=== PATIENT | male | born 1955 | race Caucasian/White ===

== ENCOUNTER → 2018-07-26 | Outpatient (CLI) | payer OTHER ==
--- NOTE | 2018-07-26 10:45 | XR ---
EXAMINATION TYPE: XR chest 2V DATE OF EXAM: 07/26/2018 COMPARISON: 09/02/2015 HISTORY: 61-year-old male hypertension and shortness of breath TECHNIQUE: Frontal and lateral views FINDINGS: Heart upper limits of normal in size. Aorta and pulmonary vasculature within normal limits. Strandy a telectasis in the lower lungs. Otherwise, no consolidation or pleural effusion. IMPRESSION: Strandy bibasilar atelectasis. Otherwise, no acute process seen.
== END ==
LOC: RADXRYALE 09:48
PROVIDERS: ATTEND Physician Assistant Medical
DX: J98.11 Atelectasis (principal)
CPT/HCPCS: 71046

== ENCOUNTER → 2018-08-22 | Outpatient (CLI) | payer MEDICARE ==
--- NOTE | 2018-08-22 11:07 | P.ARTDOP ---
Arterial Doppler LOWER EXTREMITY ARTERIAL DOPPLER: DATE OF SERVICE: 08/22/2018 Reason for study: Painful toes. Doppler waveforms: Multiphasic bilaterally throughout. Pulse volume recording: Fairly normal waveforms in the digits. Pressure gradients: None. Ankle-brachial indices: Greater than 1 bilaterally. Toe pressures: 108 on the right, 120 on the left Impression: Normal resting test. Does not totally rule out Raynaud's. Treatment would be the same with keeping the feet warm and dry. Calcium channel blockers can be considered in extreme cases..
== END | disposition home or self-care (01) ==
LOC: RADUSWWP 08:10
PROVIDERS: ATTEND Family Medicine
DX: R09.89 Other specified symptoms and signs involving the circulatory and respiratory systems (principal); R20.8 Other disturbances of skin sensation
CPT/HCPCS: 93922

== ENCOUNTER → 2023-09-05 | Outpatient (CLI) | payer MEDICARE ==
--- NOTE | 2023-09-05 14:33 | US ---
EXAMINATION TYPE: US arterial LE single level DATE OF EXAM: 09/05/2023 2:01 PM CLINICAL INDICATION: Male, 67 years old with history of I73.9 PERIPHERAL VASCULAR DISEASE; Painful pu rple toes History of: Smoker: No Hypertension: Yes Diabetic: No Hyperlipidemia: No TIA/CVA: No Previous Vascular Surgery: No CAD: No IL: No Vascular Ulcers: No Claudication: No Gangrene: No Doppler Waveforms: Right: Biphasic Left: Biphasic Pulse Volume Recording: NA Pressure Gradients: NA Right Brachial Pressure: 129 Left Brachial Pressure: 139 Ankle-Brachial Indices: Right: 1.07 Left: 1.11 Toe Brachial Indices: Right: 0.35 Left: 0.37 IMPRESSION: 1. Ankle brachial indices within normal limits. 2. Toe brachial indices suggestive of severe disease.
== END | disposition home or self-care (01) ==
LOC: RADUSWWP 13:01
PROVIDERS: ATTEND Family Medicine
DX: I73.9 Peripheral vascular disease, unspecified (principal); M79.676 Pain in unspecified toe(s)
CPT/HCPCS: 93922

== ENCOUNTER → 2024-01-24 | Outpatient (CLI) | payer MEDICARE ==
--- NOTE | 2024-01-24 16:27 | XR ---
EXAMINATION TYPE: XR lumbosacral spine 5V DATE OF EXAM: 01/24/2024 Comparison: None Clinical History: 68-year-old male [id number] LBP, IDD Findings: Hypertrophic facet arthropathy is present throughout. Degenerative grade 1 retrolisthesis L1-L2 and g rade 1 anterolisthesis L2-L3 and L4-L5. Levoconvex scoliosis. Mild to moderate degenerative disc dise ase throughout. Vertebral body heights are preserved. Impression: Degenerative levoconvex curvature. Hypertrophic facet arthropathy throughout with degenerative grade 1 spondylolisthesis L1-L2, L2-L3, and L4-L5.
== END | disposition home or self-care (01) ==
LOC: RADXRYALE 14:40
PROVIDERS: ATTEND Physician Assistant Medical
DX: M51.36 Other intervertebral disc degeneration, lumbar region (principal); M43.16 Spondylolisthesis, lumbar region; M47.816 Spondylosis without myelopathy or radiculopathy, lumbar region
CPT/HCPCS: 72110